=== PATIENT | female | born 1960 | race Caucasian/White ===

== ENCOUNTER → 2022-05-19 | Outpatient (CLI) | payer BC ==
[~2022-05-19] MED LIST: CATHETER FLUSH 10 ML SYR IV PRN; HOLD METFORMIN - RECEIVED CONTRAST 20 ML VIAL IV SCH; IOHEXOL 350 MG/ML 100 ML (OMNIPAQUE 350) VIAL IV ONE; NS 100 ML (IVPB) BAG IV ONE
--- NOTE | 2022-05-19 14:06 | Diagnostic Imaging Report ---
CLINICAL INDICATION: Patient with pain to back of ear and to jaw. The patient has left-sided ear pain. EXAM: Axial CT scan of the temporal bone structure was performed without IV contrast. Sagittal and coronal reformatted images were created. Auto Exposure Controls were utilized during the CT exam to meet ALARA standards for radiation dose reduction. COMPARISON: None. FINDINGS: There is a small area of significant bony thickening versus dehiscence involving the anterior aspect of the tegmen tympani region seen on series 16, image 19 of the coronal reformatted images involving the right temporal bone structures. This area measures roughly 2 mm in width. The right tympanic membrane is difficult to visualize and may be related to resolution of the CT scan. High riding right jugular bulb is seen with no evidence of dehiscence or diverticulum. Otherwise, the right temporal bone structures are unremarkable. High riding left jugular bulb is seen with an area of significant bony thinning or dehiscence involving the anterior lateral wall of the left jugular canal towards the middle ear. This area measures roughly 1.4 mm in width and is seen on series 14, image 35 of the axial sequence and left temporal bones. This may represent a small area of jugular dehiscence. There is no significant diverticulum seen. The remainder of the temporal bone structures are unremarkable. The mastoid air cells are clear. The IACs, inner ears, middle ears, and external auditory canals are unremarkable. The oval and round windows are patent. There is no evidence of semicircular canal dehiscence. The visualized temporal bone portions of cranial nerve VII has normal appearance. No evidence of aberrant carotid vascular structures. The vestibular aqueducts have normal appearance bilaterally. There is mild to moderate mucosal thickening involving the sphenoid sinus. Limited visualization of the intracranial structures and globes are unremarkable. IMPRESSION: 1: There is high riding left jugular bulb with a small area concerning for possible bony dehiscence toward the middle ear region. 2: There is a high riding right jugular bulb. 3: There is a small area of bony thinning versus dehiscence involving the anterior aspect of the tegmen tympani. 4: The bilateral tympanic membranes are not well visualized on this exam and may be related to CT resolution. 5: Otherwise, the remainder of this exam is unremarkable. Dictated by: Dictated on workstation # [id number]
== END ==
LOC: RAD FS 07:57
PROVIDERS: ATTEND Allergy & Immunology
DX: H92.02 Otalgia, left ear (principal)
CPT/HCPCS: 70482; Q9967

== ENCOUNTER → 2022-07-20 | Outpatient (CLI) | payer BC ==
--- NOTE | 2022-07-20 12:20 | Diagnostic Imaging Report ---
EXAMINATION: Magnetic resonance imaging of the left knee without intravenous contrast DATE: July 20, 2022. COMPARISON: None. INDICATION: 61-year-old female, left knee pain. TECHNIQUE: Multiplanar, multisequence non contrast enhanced MR imaging was accomplished. FINDINGS: MENISCI: The medial meniscus is intact. The lateral meniscus is intact. LIGAMENTS AND TENDONS: The anterior and posterior cruciate ligaments are intact. The medial collateral ligament is intact. The iliotibial band, mid third lateral capsular ligament, fibular collateral ligament, biceps femoris tendon and conjoined tendon are intact. The quadriceps tendon and patella ligament are intact. JOINT: The articular cartilage surfaces are intact. There is no knee joint effusion, prominent synovitis, or intra-articular body. BONE: There is edema-like signal in the lateral aspect of the lateral tibial plateau without identified fracture line. The additional bone marrow signal is unremarkable. BURSAE AND SOFT TISSUES: There is a small slitlike partially ruptured Hillman's cyst. IMPRESSION: 1. Intact menisci and cruciate ligaments. Additional ligaments and tendons are intact. 2. Intact articular cartilage. No knee joint effusion. 3. Edema-like signal in the lateral aspect of the lateral tibial plateau without identified fracture line. This most likely reflects a bone contusion. 4. Small slitlike partially ruptured Hillman's cyst. Dictated by: Dictated on workstation # [id number]
== END ==
LOC: RAD 09:18
PROVIDERS: ATTEND Family Medicine
DX: M66.0 Rupture of popliteal cyst (principal)
CPT/HCPCS: 73721